=== PATIENT | female | born 1970 | race Caucasian/White ===

== ENCOUNTER 2017-11-07 17:52 | Emergency (ER) | payer OTHER ==
[2017-11-07] MEDS: CYCLOBENZAPRINE 10 MG TAB PO (19:09)
[2017-11-07] MEDS: PERCOCET 5MG/325MG TAB PO (19:10)
== END 2017-11-07 20:07 | disposition home or self-care (01) ==
LOC: M ED 17:52
DX: S20.211A Contusion of right front wall of thorax, initial encounter (principal); W00.9XXA Unspecified fall due to ice and snow, initial encounter; Y92.89 Other specified places as the place of occurrence of the external cause; Z87.891 Personal history of nicotine dependence; Z98.890 Other specified postprocedural states
CPT/HCPCS: 99283

== ENCOUNTER → 2017-11-07 | Outpatient (CLI) | payer OTHER | LOC: M WUC 16:47 | DX: S20.211A Contusion of right front wall of thorax, initial encounter (principal); X19.XXXA Contact with other heat and hot substances, initial encounter; Y92.89 Other specified places as the place of occurrence of the external cause; Y99.9 Unspecified external cause status ==

== ENCOUNTER 2020-03-17 11:12 | Emergency (ER) | payer OTHER ==
[~2020-03-17] VITALS: Ht 157.5 cm; Wt 62.6 kg
[~2020-03-17 11:12] MED LIST changes: -PANT40TA3 PO
[2020-03-17 11:48] LABS: BASO % 0.1 % (0.0-1.0); HEMATOCRIT 47.2 % (36.0-47.0); HEMOGLOBIN 16.3 g/dl (12.0-15.5); LYMPH # 1.4 10^3/uL (1.5-5.0); LYMPH % 12.4 % (24.0-44.0); MEAN CORPUSCULAR HEMOGLOBIN 29.2 pg (27.0-33.0); MEAN CORPUSCULAR HGB CONC 34.5 g/dl (32.0-36.5); MEAN CORPUSCULAR VOLUME 84.4 fl (80.0-96.0); MONO # 0.5 10^3/uL (0.0-0.8); MONO % 4.2 % (0.0-5.0); NEUTROPHILS # 9.2 10^3/uL (1.5-8.5); NEUTROPHILS % 82.9 % (36.0-66.0); PLATELET COUNT, AUTOMATED 321 10^3/uL (150-450); RED BLOOD COUNT 5.59 10^6/uL (4.00-5.40); WHITE BLOOD COUNT 11.1 10^3/uL (4.0-10.0)
[2020-03-17 12:09] LABS: ALBUMIN 4.7 GM/DL (3.2-5.2); ALT/SGPT 36 U/L (12-78); BILIRUBIN,DIRECT < 0.1 MG/DL (0.0-0.2); BILIRUBIN,TOTAL 0.4 MG/DL (0.2-1.0); LIPASE 88 U/L (73-393); TOTAL PROTEIN 8.4 GM/DL (6.4-8.2)
[2020-03-17] MEDS ORDERED: NS 1,000 ML IV ONE (12:30)
[2020-03-17] MEDS ORDERED: PANTOPRAZOLE 40MG VIAL (C9113 PER 1) IV ONE (12:30)
[2020-03-17] MEDS ORDERED: ONDANSETRON 4MG/2ML VIAL IV ONE (12:30)
--- NOTE | 2020-03-17 12:46 | REP ---
Clinical: Epigastric pain. Hematemesis. Technique: Single supine view of the abdomen and pelvis. Findings: Bowel gas pattern is nonspecific. No obvious organomegaly. No abnormal calcifications. No foreign body. Skeletal structures are intact. Surgical clips noted in the lower abdomen/pelvis. Calcifications in the pelvis consistent with phleboliths. Impression: Nonspecific abdominal radiograph. Electronically Signed by Edward Zuleta MD 03/17/2020 12:38 P
[2020-03-17 13:23] LABS: CK-MB VALUE MASS 2.2 NG/ML (<3.6); CPK CREATINE PHOSPHOKINASE 131 U/L (26-192); MB/CK RELATIVE INDEX 1.68 (< OR =4); TROPONIN I < 0.02 NG/ML (< 0.10)
[2020-03-17] MEDS ORDERED: ISOVUE-370 76% 100ML VIAL As Ordered ONE (13:25)
[2020-03-17] MEDS ORDERED: PANT40TA3 PO (14:23)
[2020-03-17] MEDS ORDERED: GI COCKTAIL 50ML BTL(HYOSCYAMINE/MAALOX/LIDOCAINE VISCOUS)(1:3:1) PO ONE (14:30)
[2020-03-17 14:38] VITALS: BP 142/90
--- NOTE | 2020-03-17 14:42 | REP ---
Clinical: Epigastric and upper abdominal pain. Technique: Axial contrast enhanced images from the lung bases to the pubic symphysis using 100 ml Isovue 370 intravenous contrast material with coronal and sagittal re-formations. Findings: Lung bases demonstrate small focus of atelectasis/consolidation in the right middle lobe. Liver, spleen, pancreas, gallbladder, bilateral adrenal glands and kidneys are normal. The enteric system is without obstruction or perforation. A very subtle colitis cannot definitively be excluded and should be correlated clinically. Normal terminal ileum and appendix are identified in the right lower quadrant. Pelvis demonstrates normal bladder and evidence of prior hysterectomy. No ascites. No free air. No adenopathy. Atherosclerotic changes of the aorta and vasculature noted without aneurysm or dissection. Musculoskeletal structures demonstrate degenerative changes without acute osseous abnormality. Impression: 1. Cannot exclude a very mild colitis and correlation is recommended. 2. No further acute abdominopelvic pathology appreciated. 3. Small focus of atelectasis/consolidation in the right middle lobe warrants short-term follow-up chest CT to evaluate for resolution and exclude more significant pathology. Electronically Signed by Edward Zuleta MD 03/17/2020 02:34 P
--- NOTE | 2020-03-17 19:20 | ECGEPIP ---
[facility] - ED Test Date: 2020-03-17 Pat Name: ABIMAEL LEE Department: Room: - Gender: Female Radio Tester: MINERVA : 1970 Requested By: ANDREAS Walsh PA-C Order Number: [id number] Reading MD: Eduar Chung Measurements Intervals Soso Rate: 73 P: 71 NH: 125 QRS: 40 QRSD: 107 T: 12 QT: 400 QTc: 441 Interpretive Statements SINUS RHYTHM WITH MARKED SINUS ARRHYTHMIA INCOMPLETE RIGHT BUNDLE BRANCH BLOCK NONSPECIFIC ST & T-WAVE ABNORMALITY NO PRIOR ECG FOR COMPARISON Electronically Signed on 03-17-2020 19:20:15 EDT by Eduar Chung
--- NOTE | 2020-03-18 07:36 | ED PDOC ---
Post-Departure Follow-Up certified letter sent to pt re formal read of ct abd/p and rad recommendations.p lease obtain pcp name and fax and relay to pt. if no pcp refer to [facility] and fax there. Eduar Oh MD Mar 18, 2020 07:36
== END 2020-03-17 14:40 | disposition home or self-care (01) ==
LOC: M ED 11:12
DX: R10.13 Epigastric pain (principal); R11.2 Nausea with vomiting, unspecified; I25.10 Atherosclerotic heart disease of native coronary artery without angina pectoris; J44.9 Chronic obstructive pulmonary disease, unspecified; Z87.891 Personal history of nicotine dependence; I45.19 Other right bundle-branch block
CPT/HCPCS: 74018; 74177; 80047; 80076; 81001; 82550; 82553; 83690; 84484; 85025; 93005; 96361; 96374; 96375; 99284; C9113; J2405; Q9967

== ENCOUNTER → 2020-03-17 | Outpatient (CLI) | payer OTHER ==
[~2020-03-17] MED LIST: CYCL-707 PO; PANT40TA3 PO; PERC5TAB12 PO
[2020-03-17 11:53] LABS: BASO % 0.1 % (0.0-1.0); HEMATOCRIT 45.2 % (36.0-47.0); HEMOGLOBIN 15.9 g/dl (12.0-15.5); LYMPH # 1.2 10^3/uL (1.5-5.0); LYMPH % 11.6 % (24.0-44.0); MEAN CORPUSCULAR HEMOGLOBIN 29.8 pg (27.0-33.0); MEAN CORPUSCULAR HGB CONC 35.2 g/dl (32.0-36.5); MEAN CORPUSCULAR VOLUME 84.8 fl (80.0-96.0); MONO # 0.4 10^3/uL (0.0-0.8); MONO % 3.5 % (0.0-5.0); NEUTROPHILS # 8.4 10^3/uL (1.5-8.5); NEUTROPHILS % 84.4 % (36.0-66.0); PLATELET COUNT, AUTOMATED 319 10^3/uL (150-450); RED BLOOD COUNT 5.33 10^6/uL (4.00-5.40); WHITE BLOOD COUNT 9.9 10^3/uL (4.0-10.0)
[2020-03-17 12:13] LABS: ALBUMIN 4.4 GM/DL (3.2-5.2); ALT/SGPT 35 U/L (12-78); BILIRUBIN,TOTAL 0.5 MG/DL (0.2-1.0); BLOOD UREA NITROGEN 13 MG/DL (7-18); CALCIUM LEVEL 9.5 MG/DL (8.5-10.1); CARBON DIOXIDE LEVEL 26 MEQ/L (21-32); CHLORIDE LEVEL 105 MEQ/L (98-107); CREATININE FOR GFR 0.78 MG/DL (0.55-1.30); GLOMERULAR FILTRATION RATE > 60.0 (>51); GLUCOSE, FASTING 161 MG/DL (70-100); LIPASE 91 U/L (73-393); POTASSIUM SERUM 3.5 MEQ/L (3.5-5.1); SODIUM LEVEL 138 MEQ/L (136-145); TOTAL PROTEIN 8.1 GM/DL (6.4-8.2)
== END ==
LOC: M WUC 10:22
PROVIDERS: ATTEND Physician Assistant
DX: R10.13 Epigastric pain (principal)

== ENCOUNTER → 2022-03-13 | Outpatient (CLI) | payer OTHER ==
[~2022-03-13] MED LIST changes: +ALBU8.5H INH; +AMIT10TA7 PO; +ANOR1AER INH; +CYCL5TAB PO; +GABA-282 PO; +LISI20TA33 PO; +PANT40TA29 PO; +SUCR1TAB56 PO; +TREL1AER INH
== END ==
LOC: M LABSMTC 09:31
PROVIDERS: ATTEND Anesthesiology
DX: Z01.818 Encounter for other preprocedural examination (principal); Z11.52 Encounter for screening for COVID-19

== ENCOUNTER 2022-03-18 10:56 | Day surgery (SDC) | payer OTHER ==
[~2022-03-18] VITALS: Ht 157.5 cm; Wt 55.3 kg
[~2022-03-18 10:56] MED LIST changes: +LIDOCAINE 2% 100MG/5ML SDV (FOR ANES.) As Ordered ONE; +NS 1,000 ML IV ONE; +fentaNYL 100 MCG/2 ML INJECTION As Ordered ONE; +propofoL 500 MG/50 ML VIAL As Ordered ONE
[2022-03-18 13:30] VITALS: BP 118/83
== END 2022-03-18 13:32 | disposition home or self-care (01) ==
LOC: M OPP 10:56
PROVIDERS: ATTEND Internal Medicine Gastroenterology
DX: R19.5 Other fecal abnormalities (principal); K57.30 Diverticulosis of large intestine without perforation or abscess without bleeding; K64.8 Other hemorrhoids; K21.9 Gastro-esophageal reflux disease without esophagitis; R12 Heartburn; Z79.52 Long term (current) use of systemic steroids; Z79.899 Other long term (current) drug therapy; Z87.891 Personal history of nicotine dependence; Z80.3 Family history of malignant neoplasm of breast
CPT/HCPCS: 43235; 45378; J3010

== ENCOUNTER 2022-07-01 18:54 | Emergency (ER) | payer OTHER ==
[~2022-07-01] VITALS: Ht 157.5 cm; Wt 56.4 kg
[~2022-07-01 18:54] MED LIST changes: -LIDOCAINE 2% 100MG/5ML SDV (FOR ANES.) As Ordered ONE; -NS 1,000 ML IV ONE; -fentaNYL 100 MCG/2 ML INJECTION As Ordered ONE; -propofoL 500 MG/50 ML VIAL As Ordered ONE
[2022-07-01] MEDS ORDERED: LIDOCAINE 1% MDV 20ML VIAL SC ONE (20:45)
[2022-07-01] MEDS ORDERED: AMOX875T2 PO (21:58)
[2022-07-01] MEDS ORDERED: NEOSPORIN OINT 0.9 GM PKT TOP ONE (22:00)
[2022-07-01] MEDS ORDERED: AUGMENTIN 875 MG TAB PO ONE (22:00)
[2022-07-01 22:19] VITALS: BP 143/90
== END 2022-07-01 22:29 | disposition home or self-care (01) ==
LOC: M ED 18:54
DX: S51.852A Open bite of left forearm, initial encounter (principal); W54.0XXA Bitten by dog, initial encounter; Y92.009 Unspecified place in unspecified non-institutional (private) residence as the place of occurrence of the external cause; J44.9 Chronic obstructive pulmonary disease, unspecified; K21.9 Gastro-esophageal reflux disease without esophagitis; I10 Essential (primary) hypertension; M54.12 Radiculopathy, cervical region; Z79.51 Long term (current) use of inhaled steroids; Z79.899 Other long term (current) drug therapy

== ENCOUNTER → 2023-02-03 | Outpatient (CLI) | payer OTHER ==
[~2023-02-03] MED LIST changes: +AMOX875T2 PO
== END ==
LOC: M SOG 09:31
PROVIDERS: ATTEND Physician Assistant
DX: G56.03 Carpal tunnel syndrome, bilateral upper limbs (principal)

== ENCOUNTER 2023-03-27 06:01 | Day surgery (SDC) | payer OTHER ==
[~2023-03-27] VITALS: Ht 157.5 cm; Wt 59.0 kg
[~2023-03-27 06:01] MED LIST changes: +AMIT25TA17 PO; +FOLI1TAB11 PO; +LOSA100T46 PO; +ceFAZolin SOD 2 GM in IV 1 EA IV ONE
[2023-03-27] MEDS ORDERED: LR 1,000 ML IV SCH (06:50)
[2023-03-27] MEDS ORDERED: propofoL 200 MG/20 ML VIAL As Ordered ONE (07:19)
[2023-03-27] MEDS ORDERED: KETOROLAC 60MG 2ML VIAL As Ordered ONE (07:19)
[2023-03-27] MEDS ORDERED: fentaNYL 100 MCG/2 ML INJECTION As Ordered ONE (07:19)
[2023-03-27] MEDS ORDERED: LIDOCAINE 2% 100MG/5ML SDV (FOR ANES.) As Ordered ONE (07:19)
[2023-03-27] MEDS ORDERED: MIDAZOLAM INJ 2MG/2ML VIAL As Ordered ONE (07:19)
[2023-03-27] MEDS ORDERED: ONDANSETRON 4MG 2ML VIAL As Ordered ONE (07:19)
[2023-03-27] MEDS ORDERED: BACITRACIN OINTMENT 30GM TUBE As Ordered ONE (07:20)
[2023-03-27] MEDS ORDERED: PHENYLEPHRINE 10MG/ML 1ML VIAL As Ordered ONE (07:52)
[2023-03-27] MEDS ORDERED: fentaNYL 100 MCG/2 ML INJECTION IV PRN (08:40)
[2023-03-27] MEDS ORDERED: ONDANSETRON 4MG 2ML VIAL IV PRN (08:40)
[2023-03-27] MEDS ORDERED: oxyCODONE 5MG TAB PO PRN (08:40)
[2023-03-27] MEDS ORDERED: METOCLOPRAMIDE INJ 10MG/2ML VIAL IV PRN (09:10)
[2023-03-27] MEDS: PROMETHAZINE 25MG/ML 1ML VIAL IV PRN ×2 (09:59→10:10)
[2023-03-27 11:45] VITALS: BP 120/80; TEMP 98; O2SAT 96
== END 2023-03-27 11:52 | disposition home or self-care (01) ==
LOC: M SDC 06:01
PROVIDERS: ATTEND Orthopaedic Surgery Hand Surgery
DX: G56.01 Carpal tunnel syndrome, right upper limb (principal); M65.331 Trigger finger, right middle finger; M65.341 Trigger finger, right ring finger; M47.812 Spondylosis without myelopathy or radiculopathy, cervical region; J44.9 Chronic obstructive pulmonary disease, unspecified; I10 Essential (primary) hypertension; K21.9 Gastro-esophageal reflux disease without esophagitis; D68.9 Coagulation defect, unspecified; Z79.899 Other long term (current) drug therapy; Z79.51 Long term (current) use of inhaled steroids; Z87.891 Personal history of nicotine dependence
CPT/HCPCS: 26055; 29848; J0690; J1100; J1885; J2250; J2370; J2405; J2550; J2765; J3010; S0020

== ENCOUNTER → 2023-08-24 | Outpatient (CLI) | payer OTHER ==
[~2023-08-24] MED LIST changes: -AMIT25TA17 PO; +AMIT25TA19 PO; -ceFAZolin SOD 2 GM in IV 1 EA IV ONE
== END ==
LOC: M WHC 14:08
PROVIDERS: ATTEND Nurse Practitioner Adult Health
DX: Z12.31 Encounter for screening mammogram for malignant neoplasm of breast (principal); Z13.820 Encounter for screening for osteoporosis

== ENCOUNTER → 2023-11-30 | Outpatient (CLI) | payer OTHER | LOC: M WUC 11:52 | PROVIDERS: ATTEND Nurse Practitioner Adult Health | DX: M79.671 Pain in right foot (principal) ==

== ENCOUNTER 2024-03-07 13:32 | Emergency (ER) | payer OTHER ==
[~2024-03-07] VITALS: Ht 157.5 cm; Wt 57.5 kg
[2024-03-07] MEDS: ONDANSETRON 4MG 2ML VIAL IV ONE (14:55)
[2024-03-07] MEDS: NS 1,000 ML IV ONE (15:23)
[2024-03-07] MEDS: ACETAMINOPHEN 500 MG TAB PO ONE ×2 (15:35→16:30)
[2024-03-07] MEDS: KETOROLAC 30 MG/ML 1ML VIAL IV ONE (16:24)
[2024-03-07 16:56] VITALS: BP 143/85; TEMP 97.2; O2SAT 100
== END 2024-03-07 17:35 | disposition home or self-care (01) ==
LOC: M ED 13:32
DX: G43.909 Migraine, unspecified, not intractable, without status migrainosus (principal); F12.10 Cannabis abuse, uncomplicated; Z79.51 Long term (current) use of inhaled steroids; Z79.899 Other long term (current) drug therapy
CPT/HCPCS: 96361; 96374; 96375; 99283; J1885; J2405

== ENCOUNTER → 2024-09-05 | Outpatient (CLI) | payer OTHER ==
[~2024-09-05] MED LIST changes: -CYCL5TAB PO; +CYCL5TAB4 PO; +GABA-1172 PO; -GABA-282 PO
== END ==
LOC: M WHC 12:30
PROVIDERS: ATTEND Nurse Practitioner Adult Health
DX: Z12.31 Encounter for screening mammogram for malignant neoplasm of breast (principal)

== ENCOUNTER → 2025-09-11 | Outpatient (CLI) | payer OTHER ==
[~2025-09-11] MED LIST changes: +AMIT10TA11 PO; -AMIT10TA7 PO
== END ==
LOC: M WHC 09:59
DX: Z12.31 Encounter for screening mammogram for malignant neoplasm of breast (principal); M85.89 Other specified disorders of bone density and structure, multiple sites; R92.313 Mammographic fatty tissue density, bilateral breasts